=== PATIENT | male | born 1975 | race Caucasian/White ===

== ENCOUNTER 2016-09-25 11:11 | Emergency (ER) | payer OTHER ==
[2016-09-25] MEDS ORDERED: LIDOCAINE HCL 2% MPF SOL ONE (11:22)
[2016-09-25 11:23] VITALS: BP 146/94; PULSE 96; RESP 20; TEMP 99.2; O2SAT 98
[2016-09-25] MEDS ORDERED: TDAP VACCINE 0.5 ML SUS IM ONE (11:23)
[2016-09-25] MEDS: LIDOCAINE HCL 2% MPF SOL SC ONE (11:25)
[2016-09-25] MEDS: TDAP VACCINE 0.5 ML SUS IM ONE (11:30)
[2016-09-25] MEDS ORDERED: BACITRACIN 500 U/GM OIN TOP ONE (12:32)
[2016-09-25] MEDS: BACITRACIN 500 U/GM OIN TOP ONE (12:40)
== END 2016-09-25 12:57 | disposition home or self-care (01) | DRG 156 ==
LOC: ED 11:11
DX: S02.2XXB Fracture of nasal bones, initial encounter for open fracture (principal); J34.2 Deviated nasal septum; W21.07XA Struck by softball, initial encounter; Y93.64 Activity, baseball
CPT/HCPCS: 70486; 90715; 99283